=== PATIENT | female | born 1990 | race Caucasian/White ===

== ENCOUNTER 2017-11-26 21:07 | Emergency (ER) | payer BC ==
[~2017-11-26] VITALS: Ht 167.6 cm; Wt 100.0 kg
[~2017-11-26 21:07] MED LIST: LEVO1TAB29 PO; SUMA50TA4 PO
[2017-11-26] MEDS ORDERED: METHOCARBAMOL 750 MG TABLET ONE (21:50)
[2017-11-26] MEDS ORDERED: KETOROLAC 30 MG/1 ML ONE (21:50)
[2017-11-26] MEDS ORDERED: PLEASE ENTER HEIGHT AND WEIGHT MC SCH (22:00)
[2017-11-26] MEDS ORDERED: METHOCARBAMOL 500 MG TABLET PO ONE (22:00)
[2017-11-26] MEDS ORDERED: KETOROLAC 30 MG/1 ML IM ONE (22:00)
[2017-11-26 22:31] LABS: BASOPHILS # (AUTO) 0.04 x10^3/uL (0-0.1); BASOPHILS % (AUTO) 0 % (0-1); EOSINOPHILS # (AUTO) 0.07 x10^3/uL (0-0.4); EOSINOPHILS % (AUTO) 0 % (1-7); LYMPHOCYTES # (AUTO) 2.56 x10^3/uL (1-3.4); LYMPHOCYTES % (AUTO) 16 % (22-44); MD NO; MEAN CORPUSCULAR HEMOGLOBIN 30.9 pg (27.0-34.8); MEAN CORPUSCULAR HGB CONC 34.5 g/dL (32.4-35.8); MEAN CORPUSCULAR VOLUME 89.8 fL (80-100); MONOCYTES # (AUTO) 0.61 x10^3/uL (0.2-0.8); MONOCYTES % (AUTO) 4 % (2-9); NEUTROPHILS # (AUTO) 12.89 x10^3/uL (1.8-6.8); NEUTROPHILS % (AUTO) 80 % (42-75); PLATELET COUNT 201 x10^3/uL (130-400); RED BLOOD COUNT 5.14 x10^6/uL (3.82-5.3); RED CELL DISTRIBUTION WIDTH 13.5 % (9.6-15.2)
[2017-11-26 22:39] VITALS: BP 124/74
[2017-11-26 22:44] LABS: ALBUMIN 3.9 g/dL (3.4-5.0); ANION GAP 10 mmol/L (5-15); CALCIUM 9.4 mg/dL (8.5-10.1); CHLORIDE 107 mmol/L (98-107)
[2017-11-26 22:52] LABS: CREATININE 0.98 mg/dL (0.55-1.02); TROPONIN I < 0.015 ng/mL (0.000-0.045)
[2017-11-26] MEDS ORDERED: OMNIPAQUE 350 MG/ML, 100ML BOTTLE ONE (23:38)
== END 2017-11-27 01:46 | disposition home or self-care (01) ==
LOC: ED 22:09
DX: R07.89 Other chest pain (principal); M54.5 Low back pain; E66.9 Obesity, unspecified
CPT/HCPCS: 36415; 71046; 71275; 80048; 82040; 84484; 84703; 85025; 85379; 93005; 96372; 99285; J1885; Q9967